=== PATIENT | male | born 1950 | race Asian ===

== ENCOUNTER 2018-01-01 09:58 | Inpatient (IN) | payer OTHER ==
[~2018-01-01] VITALS: Ht 175.3 cm; Wt 85.3 kg
[2018-01-01] MEDS ORDERED: ASPIRIN 81 MG TAB.CHEW PO ONE (10:15)
[2018-01-01] MEDS ORDERED: IPRATRPIUM/ALBUTEROL 0.5/2.5MG 3 ML NEBU. NEB ONE (10:15)
[2018-01-01] MEDS ORDERED: methylPREDNISolone SOD SUCC PF 125 MG/2 ML VIAL. IV ONE (10:15)
--- NOTE | 2018-01-01 10:24 | PHYS DOC ---
Adult General Chief Complaint Chief Complaint: COUGH HPI HPI This is a pleasant 67-year-old male presenting to the emergency department with 3 days of cough chest pain shortness of breath. He denies any fevers at home. He has a history of reported asthma though he was a former smoker. No alleviating or exacerbating factors. He has noted a change in his sputum production with yellow sputum. He denies abdominal pain or vomiting. He does have pain in his chest that is a throbbing pain worse with coughing. Nonradiating and without alleviating factors. He was recently seen by our redrawer Dr. Glass for worsening dyspnea and lower extremity edema. He is currently awaiting the results of an echocardiogram and x-ray from clinic. He has been using his nebulizer at home without any relief. He's been taking 50 mg of prednisone without any relief as well. His shortness of breath is worse when he lays flat. Past medical history: History of asthma/COPD, insomnia, hypertension, bilateral leg edema, history of urinary retention and bilateral knee pain. Surgical history: None Social history: Former smoker, denies drinking or IV drug use. He is with 3 children. Lives with spouse. Review of systems is negative for abdominal pain fevers chills diarrhea constipation vomiting. All other review of systems is negative unless otherwise noted in history of present illness. ED course: 67-year-old male presenting to the emergency department today with chest pain cough sputum production and worsening dyspnea. On arrival he is saturating well on room air. Chest x-ray along with EKG and blood work ordered. IV steroids and nebulizer along with an aspirin administered upon arrival. EKG reviewed by myself shows sinus rhythm with a regular rate. ST segments congruent. Not suggestive of ACS. X-ray unremarkable. Blood work shows mildly low potassium. Flu negative. Urinalysis not suggestive of infection. Given the patient's chest pain with a heart score of 4 we will admit the patient for ACS rule out and COPD exacerbation in light of the patient's worsening symptoms in the context of outpatient medical tx failure. HEART SCORE History Slightly suspicious 0 Moderately suspicious +1 Highly suspicious +2 EKG 1 point: No ST depression but LBBB, LVH, repolarization changes (ex: digoxin); 2 points: ST depression/elevation not due to LBBB, LVH, or digoxin Normal 0 Non-specific repolarization disturbance +[address] depression +2 Age <45 0 45-65 +1 65 +2 Risk factors Risk factors: HTN, hypercholesterolemia, DM, obesity (BMI >30 kg/m), smoking (current, or smoking cessation 3 mo), positive family history (parent or sibling with CVD before age 65); atherosclerotic disease: prior UT, PCI/CABG, CVA/TIA, or peripheral arterial disease No known risk factors 0 1-2 risk factors +1 3 risk factors or history of atherosclerotic disease +2 Initial troponin Use local assays and corresponding cutoffs normal limit 0 1-2 normal limit +1 >2 normal limit +2 Total 4 points Impression: COPD exacerbation, pneumonia, chest pain needing rule out for ACS. Review of Systems Review of Systems SEE ABOVE. Physical Exam Physical Exam SEE ABOVE Constitutional: Well developed, well nourished, no acute distress, non-toxic appearance. [] HENT: Normocephalic, atraumatic, bilateral external ears normal, oropharynx moist, no oral exudates, nose normal. [] Eyes: PERRLA, EOMI, conjunctiva normal, no discharge. [] Neck: Normal range of motion, no tenderness, supple, no stridor. [] Cardiovascular:Heart rate regular rhythm, no murmur [] Lungs & Thorax: Patient has clear wheezing in all lung tony with prolonged respiratory phase. Abdomen: Bowel sounds normal, soft, no tenderness, no masses, no pulsatile masses. [] Skin: Warm, dry, no erythema, no rash. [] Back: No tenderness, no CVA tenderness. [] Extremities: No tenderness, no cyanosis, no clubbing, ROM intact, no edema. [] Neurologic: Alert and oriented X 3, normal motor function, normal sensory function, no focal deficits noted. [] Psychologic: Affect normal, judgement normal, mood normal. [] EKG EKG [] Radiology/Procedures Radiology/Procedures [] Course & Med Decision Making Course & Med Decision Making Pertinent Labs and Imaging studies reviewed. (See chart for details) [] Dragon Disclaimer Dragon Disclaimer This electronic medical record was generated, in whole or in part, using a voice recognition dictation system. Departure Departure: Disposition: ADMITTED INPATIENT Admitting Physician: Alverto Mathew Condition: STABLE BASHIR REYES MD Jan 01, 2018 10:24
[2018-01-01] MEDS ORDERED: AZITHROMYCIN 500 MG in IV NORMAL SALINE 250ML 250 ML IV ONE (10:30)
[2018-01-01 10:39] LABS: BASO # 0.1 x10^3/uL (0.0-0.2); BASO % 1 % (0-3); EOS # 0.3 x10^3/uL (0.0-0.7); EOS % 4 % (0-3); HEMOGLOBIN 15.6 g/dL (13.0-17.5); LYMPH # 1.2 x10^3/uL (1.0-4.8); LYMPH % 17 % (24-48); MEAN CORPUSCULAR HEMOGLOBIN 27 pg (25-35); MEAN CORPUSCULAR HGB CONC 35 g/dL (31-37); MEAN CORPUSCULAR VOLUME 79 fL (79-100); MONO # 0.7 x10^3/uL (0.0-1.1); MONO % 11 % (0-9); NEUT # 4.7 x10^3uL (1.8-7.7); NEUT % 67 % (31-73); PLATELET COUNT 279 x10^3/uL (140-400); RED BLOOD COUNT 5.71 x10^6/uL (4.30-5.70); RED CELL DISTRIBUTION WIDTH 14.7 % (11.5-14.5)
[2018-01-01] MEDS ORDERED: IV NORMAL SALINE 50ML 50 ML ONE (10:39)
[2018-01-01] MEDS ORDERED: IV NORMAL SALINE 250ML 250 ML ONE (10:39)
[2018-01-01] MEDS ORDERED: AZITHROMYCIN 500 MG VIAL. IV ONE (10:39)
[2018-01-01] MEDS ORDERED: cefTRIAXone SODIUM 1 GM VIAL IV ONE (10:40)
--- NOTE | 2018-01-01 10:50 | RAD ---
EXAM: CHEST 1 VIEW History: Cough COMPARISON: None available. TECHNIQUE: Single portable radiograph of the chest FINDINGS: The cardiac silhouette is unremarkable. The lungs are clear bilaterally. The costophrenic sulci are clear and well demarcated. IMPRESSION: No radiographic evidence of an acute cardiopulmonary process. Electronically signed by: Vj Hahn MD (01/01/2018 10:47 AM) [id number]
[2018-01-01 10:57] LABS: ALBUMIN 3.7 g/dL (3.4-5.0); CALCIUM 10.3 mg/dL (8.5-10.1); CREATININE 1.4 mg/dL (0.7-1.3); DIRECT BILIRUBIN 0.2 mg/dL (0.0-0.2); GFR 50.5; POTASSIUM 3.3 mmol/L (3.5-5.1); TOTAL BILIRUBIN 1.1 mg/dL (0.2-1.0); TOTAL PROTEIN 7.8 g/dL (6.4-8.2)
[2018-01-01 11:01] LABS: INFLUENZA A PATIENT NEGATIVE (NEGATIVE); INFLUENZA B PATIENT NEGATIVE (NEGATIVE)
[2018-01-01 11:21] LABS: BACTERIA,URINE 0 /HPF (0-FEW); BILIRUBIN,URINE NEG (NEG); CLARITY,URINE CLEAR; COLOR,URINE YELLOW; GLUCOSE,URINE NEG (NEG); NITRITE,URINE NEG (NEG); RBC,URINE RARE /HPF (0-2); SQUAMOUS EPITHELIAL CELL,UR OCC /LPF; UROBILINOGEN,URINE 0.2 mg/dL (0.2 mg/dL); WBC,URINE OCC /HPF (0-4)
[2018-01-01 12:29] VITALS: BP 118/79
--- NOTE | 2018-01-01 13:53 | EKG ---
[address] [address] Test Date: 2018-01-01 Test Time: 11:08:20 Pat Name: ANGEL BARRETT Department: Room: 117 A Gender: M [employer]: : [id number] Requested By: BASHIR REYES Order Number: [id number] Reading MD: Dillon Au MD Measurements Intervals [place] Rate: 68 P: 16 [place]: 178 QRS: 3 QRSD: 106 T: 19 QT: 424 QTc: 451 Interpretive Statements SINUS RHYTHM Electronically Signed On 01-03-2018 13:41:32 CDT by Dillon Au MD
[2018-01-01 15:26] VITALS: BP 109/71
[2018-01-01] MEDS ORDERED: ALBUTEROL SULFATE 2.5 MG/3 ML NEBU. NEB PRN (17:00)
[2018-01-01] MEDS ORDERED: PRED50TA PO (17:13)
[2018-01-01] MEDS ORDERED: TIZA4TAB PO (17:13)
[2018-01-01] MEDS ORDERED: LOSA1TAB25 PO (17:14)
[2018-01-01] MEDS ORDERED: AMLO10TA6 PO (17:14)
[2018-01-01] MEDS ORDERED: TRAZ-85 PO (17:14)
[2018-01-01] MEDS ORDERED: HYDR12.58 PO (17:14)
[2018-01-01] MEDS ORDERED: ALBU8.5H8 INH (17:14)
[2018-01-01] MEDS ORDERED: TAMS0.4C2 PO (17:14)
[2018-01-01] MEDS ORDERED: IPRA3AMP29 NEB (17:14)
[2018-01-01] MEDS ORDERED: tiZANidine 4 MG TABLET. PO PRN (17:30)
--- NOTE | 2018-01-01 18:02 | RAD ---
CT head without intravenous contrast History: Severe headache. Cough and sinus drainage. Comparison: CT head November 29, 2017. Technique: Axial images are obtained of the head from the skull base through the vertex without IV contrast. Exposure: One or more of the following individualized dose reduction techniques were utilized for this examination: 1. Automated exposure control 2. Adjustment of the mA and/or kV according to patient size 3. Use of iterative reconstruction technique Findings: The ventricles are appropriate in size, shape, and location for the patient's age. No obvious intracranial mass, mass-effect, midline shift, hemorrhage or obvious acute infarction is identified. Basilar cisterns are patent. Bone windows demonstrate no acute calvarial abnormality. Impression: 1. No acute intracranial process. CT face without contrast Technique: CT of the face was performed without intravenous contrast. Axial, sagittal, and coronal reconstructions were obtained. Exposure: One or more of the following individualized dose reduction techniques were utilized for this examination: 1. Automated exposure control 2. Adjustment of the mA and/or kV according to patient size 3. Use of iterative reconstruction technique Findings: No acute fracture is identified. Bilateral orbits and orbital contents appear intact. Mild bilateral maxillary sinus mucosal thickening is seen. Both ostiomeatal units are patent. Left frontal sinus is undeveloped. There is heterogeneously dense material with multiple foci of gas measuring about 2 cm in maximum dimension anterior and adjacent to the left parasymphyseal the mandible. This may be packing material. Correlate with history. Impression: 1. Mild bilateral maxillary sinus mucosal thickening. 2. Heterogeneously dense material is seen adjacent to the left parasymphyseal mandible. Recommend correlation with the history and physical examination. Electronically signed by: John Estrella MD (01/01/2018 5:58 PM) [facility]
[2018-01-01] MEDS: ACETAMINOPHEN 325 MG TABLET PO PRN (18:04)
[2018-01-01 19:42] VITALS: BP 101/66
[2018-01-01] MEDS: traZODone 50 MG TABLET. PO SCH (20:19)
[2018-01-01] MEDS: MONTELUKAST 10 MG TABLET. PO SCH (20:19)
[2018-01-01] MEDS: IPRATRPIUM/ALBUTEROL 0.5/2.5MG 3 ML NEBU. NEB SCH (20:46)
[2018-01-01] MEDS: methylPREDNISolone SOD SUCC PF 40 MG/ML VIAL. IV SCH (20:58)
[2018-01-01 22:49] VITALS: BP 98/61
--- NOTE | 2018-01-02 02:37 | HP ---
ADMIT DATE: 01/01/2018 HISTORY OF PRESENT ILLNESS: The patient is a 67-year-old [place] male patient, who apparently came to the Emergency Room complaining of 3 days of cough and chest pain and shortness of breath. He denied any fever at home. He has a history of reported bronchial asthma; however, he was frail former smoker. He was not really very specific about his chest pain and stated that it is constantly going up to the right neck and into his head. Denied any nausea or vomiting. Denied any diaphoresis. His shortness of breath is worse on exertion. According to his daughter, he apparently has had myocardial infarction about 3 years ago when he was admitted to the [facility], although no mention of any stenting. He was evaluated in the Emergency Room and was treated with IV steroids, IV antibiotics, and has had his first set of cardiac enzymes that was negative and was admitted to consult the cardiology team and to rule out myocardial infarction. PAST MEDICAL HISTORY: Significant for hypertension, bronchial asthma, coronary artery disease status post MS, and generalized osteoarthritis. PAST SURGICAL HISTORY: Unremarkable. ALLERGIES: HE IS ALLERGIC TO IODINE, CONTRAST DYE, IODINE POVACRYLEX WELL ISOPROPYL ALCOHOL. MEDICATIONS: He is currently on following medications: He is on prednisone 50 mg p.o. twice a day, tizanidine 4 mg every 8 hours, losartan/hydrochlorothiazide 100/12.5 mg daily, hydrochlorothiazide 25 mg 1 tablet once a day, amlodipine 10 mg 1 tablet once a day, ipratropium bromide/albuterol by nebulizer 4 times a day. He is on ProAir 1 inhalation every 4 hours as needed. He is on Flomax 0.4 mg once a day and trazodone 50 mg at bedtime. He is also known to have history of bladder outlet obstruction that required an indwelling Law catheter, was kept for 2 weeks and was removed. FAMILY HISTORY: Unremarkable. One of his older brothers has diabetes and does not know anything about his other brother and 3 sisters. Both parents are , but does not know the age or the cause of their . SOCIAL HISTORY: He is , has 1 son and 2 daughters. He is an ex-smoker, quit 8 years ago; however, continues to chew tobacco. He does not drink alcohol or use any recreational drugs. He is currently on disability. REVIEW OF SYSTEMS: The patient denied any blurring of vision, cataract, glaucoma or macular degeneration. Denied any earache, tinnitus or sensorineural deafness. Denied any nosebleeds, stuffy nose or postnasal drip. Denied any sore throat, sore tongue, toothache, hoarseness of voice or difficulty swallowing. Denied any nausea, vomiting, diarrhea or constipation. Denied any hematemesis, melena or hematochezia. Denied any dysuria, frequency or hematuria. Did complain of chest pain, shortness of breath, mostly on exertion. PHYSICAL EXAMINATION: GENERAL: On arrival to the Emergency Room, he looked well. There was no pallor, jaundice or cyanosis. No lymphadenopathy, no thyromegaly. No jugular venous distension. No lower limb edema. VITAL SIGNS: His heart rate was 105, blood pressure was 109/77, temperature was 98.2, respiratory rate was 26 and oxygen saturation was 97%. HEENT: Showed normocephalic, atraumatic. NECK: Supple. HEART: Showed normal first and second heart sounds with no gallop, rub or murmur. CHEST: Clear to auscultation. No crepitation or rhonchi. ABDOMEN: Distended, soft, nontender. No guarding or rigidity. No organomegaly. Hernial orifice intact. Bowel sounds normal. NEUROLOGIC: He is awake, alert, responding appropriately. All his cranial nerves are intact. EXTREMITIES: He moves extremities without difficulty, ambulates with a cane. LABORATORY DATA: His lab work on arrival showed a white cell count of 7000, hemoglobin 15.6, hematocrit 45, MCV 79 and platelet count of 279,000. His chemistry showed a serum sodium of 141, potassium 3.3, chloride 103, bicarbonate 30, anion gap of 8, BUN 12, creatinine 1.4, estimated GFR was 50 mL per minute. His glucose was 103, calcium was 7.3. Total bilirubin, AST, ALT, and alkaline phosphatase were normal. His lactic acid is only 1.8. His first set of cardiac enzyme showed troponin to be less than 0.017. His beta-natriuretic peptide was 41. Total protein was 7.8, albumin was 3.7. Lipase was 161. His urinalysis was essentially unremarkable and was negative for protein, glucose, ketones, nitrite and leukocyte esterase. His influenza A and B were both negative. His chest x-ray showed the cardiac silhouette is unremarkable. The lungs are clear bilaterally. The costophrenic sulci are clear and well demarcated. ASSESSMENT AND PLAN: The patient was admitted with chest pain and worsening shortness of breath. He is a smoker. He probably has chronic obstructive pulmonary disease exacerbation and probably acute bronchitis. I would continue with IV ceftriaxone and Zithromax. Continue with nebulized treatment as well as Solu-Medrol. We will do 2 more sets of cardiac enzyme. I will arrange for him to have a CT scan of the paranasal sinuses and to consult the cardiology team. NOLAN ARAUZ MD DR: SAMIA/gideon JOB#: [id number] / [id number]
[2018-01-02] MEDS: IPRATRPIUM/ALBUTEROL 0.5/2.5MG 3 ML NEBU. NEB SCH ×2 (05:25→10:25)
[2018-01-02] MEDS: methylPREDNISolone SOD SUCC PF 40 MG/ML VIAL. IV SCH ×2 (05:31→17:37)
[2018-01-02 05:37] VITALS: BP 107/74
[2018-01-02 06:16] LABS: BASO % 0 % (0-3); EOS % 0 % (0-3); HEMATOCRIT 44.8 % (39.0-53.0); HEMOGLOBIN 15.8 g/dL (13.0-17.5); LYMPH # 1.2 x10^3/uL (1.0-4.8); LYMPH % 9 % (24-48); MEAN CORPUSCULAR HEMOGLOBIN 28 pg (25-35); MEAN CORPUSCULAR HGB CONC 35 g/dL (31-37); MEAN CORPUSCULAR VOLUME 79 fL (79-100); MONO # 0.3 x10^3/uL (0.0-1.1); MONO % 2 % (0-9); NEUT # 12.2 x10^3uL (1.8-7.7); NEUT % 89 % (31-73); PLATELET COUNT 291 x10^3/uL (140-400); WHITE BLOOD COUNT 13.7 x10^3/uL (4.0-11.0)
[2018-01-02 06:17] LABS: CALCIUM 9.7 mg/dL (8.5-10.1); CREATININE 1.5 mg/dL (0.7-1.3); GFR 46.7; POTASSIUM 3.5 mmol/L (3.5-5.1)
[2018-01-02] MEDS: AZITHROMYCIN 250 MG TABLET. PO SCH (08:15)
[2018-01-02] MEDS: amLODIPine BESYLATE 10 MG TABLET PO SCH (08:15)
[2018-01-02] MEDS: TAMSULOSIN 0.4 MG CAP.ER.24H. PO SCH (08:16)
[2018-01-02] MEDS: ACETAMINOPHEN 325 MG TABLET PO PRN ×3 (08:21→20:52)
--- NOTE | 2018-01-02 09:32 | PDOC2 ---
CONSULT Date of Admission DATE: 01/02/18 TIME: 09:30 Reason for Consult: CP, Dyspnea Problem List Problems Medical Problems: (1) COPD (chronic obstructive pulmonary disease) Status: Acute History of Present Illness Mr Verma is a 67-year-old male who speaks minimal Yakut. [employer] phone services utilized. He presented to his PCP office yesterday complaining of shortness of breath, cough and chest pain. He has a history of prior GA and coronary artery disease and was seen earlier in the month by our office. He reports progressive symptoms of dyspnea over the last few years. The last 3 weeks he reports increased cough and dyspnea above baseline. He reports productive cough with white sputum. He reports feeling of being hot but unsure of fever. He reports increased discomfort with cough which radiates to his right shoulder and neck. He also describes chest discomfort, Mid to left chest off and on, described as tightness/heaviness that worsens with exertion and improves with rest. He denies congestive symptoms such as PND or orthopnea though he reported to his PCP that he was not able to lie flat due to symptoms. He has been using nebulizers and prednisone at home without improvement. He denies palpitations or syncope. He does report lower extremity edema. CXR failed to reveal any pulmonary vascular congestion and cardiac enzymes have remained normal. He does have mild leukocytosis. He has been afebrile since admission. Past Medical History Cardiovascular: CAD, HTN, GA, Other (SVT) Pulmonary: Asthma Psych: Other (insomnia) Musculoskeletal: Osteoarthritis, Other (chronic back pain) Renal/: Benign prostatic enlarg. (bladder outlet obstruction previously requiring indwelling catheter for a period of time) Past Surgical History unremarkable Family History One of his older brothers has diabetes and does not know anything about his other brother and 3 sisters. Both parents are , but does not know the age or the cause of their . no known premature coronary disease Social History He is , has 1 son and 2 daughters. He is an ex-smoker, quit 8 years ago ; however, continues to chew tobacco. He does not drink alcohol or use any recreational drugs. He is currently on disability. Current Medications Home medications: prednisone 50 mg p.o. twice a day tizanidine 4 mg every 8 hours losartan/hydrochlorothiazide 100/12.5 mg daily hydrochlorothiazide 25 mg 1 tablet once a day amlodipine 10 mg 1 tablet once a day ipratropium bromide/albuterol by nebulizer 4 times a day ProAir 1 inhalation every 4 hours as needed Flomax 0.4 mg once a day trazodone 50 mg at bedtime. Current Medications Methylprednisolone Sodium Succinate (SOLU-Medrol 125MG VIAL) 125 mg 1X ONCE IV Last administered on 01/01/18at 10:47; Start 01/01/18 at 10:15; Stop at 10:24; Status DC Albuterol/ Ipratropium (Duoneb) 3 ml 1X ONCE NEB Last administered on at 10:47; Start 01/01/18 at 10:15; Stop 01/01/18 at 10:24; Status DC Aspirin (Children'S Aspirin) 324 mg 1X ONCE PO Last administered on at 10:44; Start 01/01/18 at 10:15; Stop 01/01/18 at 10:24; Status DC Ceftriaxone Sodium 1 gm/ Sodium Chloride 50 ml @ 100 mls/hr 1X ONCE IV Last administered on 01/01/18at 10:48; Start 01/01/18 at 10:30; Stop 01/01/18 at 10 :59; Status DC Azithromycin 500 mg/Sodium Chloride 250 ml @ 250 mls/hr 1X ONCE IV Last administered on 01/01/18at 10:49; Start 01/01/18 at 10:30; Stop 01/01/18 at 11 :29; Status DC Sodium Chloride 250 ml @ As Directed STK-MED ONCE .ROUTE ; Start 01/01/18 at 10:39; Stop 01/01/18 at 10:40; Status DC Sodium Chloride 50 ml @ As Directed STK-MED ONCE .ROUTE ; Start 01/01/18 at 10: 39; Stop 01/01/18 at 10:40; Status DC Azithromycin (Zithromax) 500 mg STK-MED ONCE IV ; Start 01/01/18 at 10:39; Stop 01/01/18 at 10:40; Status DC Ceftriaxone Sodium (Rocephin) 1 gm STK-MED ONCE IV ; Start 01/01/18 at 10:40; Stop 01/01/18 at 10:41; Status DC Methylprednisolone Sodium Succinate (SOLU-Medrol 40MG VIAL) 40 mg Q8HRS IV Last administered on 01/02/18at 05:31; Start 01/01/18 at 22:00 Ceftriaxone Sodium 1 gm/ Sodium Chloride 50 ml @ 100 mls/hr Q24H IV ; Start at 17:00; Stop 01/01/18 at 17:16; Status DC Azithromycin (Zithromax) 500 mg DAILY PO Last administered on 01/02/18at 08:15 ; Start 01/02/18 at 09:00 Albuterol/ Ipratropium (Duoneb) 3 ml RTQID NEB Last administered on 01/02/18at 05:25; Start 01/01/18 at 20:00 Guaifenesin (Mucinex Er) 600 mg BID PO Last administered on 01/02/18at 08:16; Start 01/01/18 at 21:00 Montelukast Sodium (Singulair) 10 mg QHS PO Last administered on 01/01/18at 20: 19; Start 01/01/18 at 21:00 Albuterol Sulfate (Ventolin) 2.5 mg PRN Q2HR PRN NEB SHORTNESS OF BREATH; Start 01/01/18 at 17:00 Tamsulosin HCl (Flomax) 0.4 mg DAILY PO Last administered on 01/02/18at 08:16; Start 01/02/18 at 09:00 Amlodipine Besylate (Norvasc) 10 mg DAILY PO Last administered on 01/02/18at 08 :15; Start 01/02/18 at 09:00 Tizanidine HCl (Zanaflex) 4 mg PRN Q8HRS PRN PO MUSCLE SPASMS; Start 01/01/18 at 17:30 Trazodone HCl (Desyrel) 50 mg QHS PO Last administered on 01/01/18at 20:19; Start 01/01/18 at 21:00 Ceftriaxone Sodium 1 gm/ Sodium Chloride 50 ml @ 100 mls/hr Q24H IV ; Start at 11:00 Influenza Virus Vaccine (Afluria Trivalent [id number] Syringe) 0.5 ml ONCE ONCE VAX IM Last administered on 01/02/18at 08:19; Start 01/02/18 at 09:00; Stop 01/02/18 at 09:01; Status DC Acetaminophen (Tylenol) 650 mg PRN Q6HRS PRN PO PAIN / TEMP Last administered on 01/02/18at 08:21; Start 01/01/18 at 18:00 Lactobacillus Rhamnosus (Culturelle) 1 cap BID PO ; Start 01/02/18 at 10:00 Active Scripts Active Reported Trazodone Hcl 50 Mg Tablet 1 Tab PO QHS Tamsulosin Hcl 0.4 Mg Cap.er.24h 1 Cap PO DAILY Proair Hfa Inhaler (Albuterol Sulfate) 8.5 Gm Hfa.aer.ad 2 Puff INH PRN Q4HRS PRN Duoneb 0.5-3(2.5) Mg/3 Ml (Albuterol/Ipratropium) 3 Ml Ampul.neb 3 Ml NEB QID Amlodipine Besylate 10 Mg Tablet 1 Tab PO DAILY Hydrochlorothiazide Tablet (Hydrochlorothiazide) 12.5 Mg Tablet 2 Tab PO DAILY Losartan-Hctz 100-12.5 Mg Tab (Losartan/Hydrochlorothiazide) 1 Each Tablet 1 Tab PO DAILY Tizanidine Hcl (Tizanidine HCl) 4 Mg Tablet 4 Mg PO PRN Q8HRS PRN Prednisone 50 Mg Tablet 50 Mg PO BID Allergies: Coded Allergies: Iodinated Contrast- Oral and IV Dye (Verified Allergy, Unknown, 01/01/18) iodine povacrylex (Verified Allergy, Unknown, 01/01/18) isopropyl alcohol (Verified Allergy, Unknown, 01/01/18) Review of System as per HPI and denies further complaints currently General: Alert, Oriented X3, Cooperative, No acute distress HEENT: Atraumatic, EOMI Lungs: Other (decreased with occasional expiratory wheezing) Heart: Regular rate, Normal S1, Normal S2, Other (no gallops, clicks or rubs) Extremities: No cyanosis, Normal pulses, Other (trace bilateral lower extremity edema) Neuro: Normal speech, Strength at 5/5 X4 ext Psych/Mental Status: Mental status NL, Mood NL VITALS Vital Signs Date Time Temp Pulse Resp B/P (MAP) Pulse Ox O2 Delivery O2 Flow Rate FiO2 01/02/18 08:15 102 107/74 01/02/18 08:00 Room Air 01/02/18 05:37 97.6 20 94 Labs Laboratory Tests Test 01/01/18 10:21 01/01/18 10:23 01/01/18 10:30 01/01/18 14:04 Influenza Type A (Rapid) Negative (NEGATIVE) Influenza Type B (Rapid) Negative (NEGATIVE) White Blood Count 7.0 x10^3/uL (4.0-11.0) Red Blood Count 5.71 x10^6/uL (4.30-5.70) Hemoglobin 15.6 g/dL (13.0-17.5) Hematocrit 45.0 % (39.0-53.0) Mean Corpuscular Volume 79 fL (79-100) Mean Corpuscular Hemoglobin 27 pg (25-35) Mean Corpuscular Hemoglobin Concent 35 g/dL (31-37) Red Cell Distribution Width 14.7 % (11.5-14.5) Platelet Count 279 x10^3/uL (140-400) Neutrophils (%) (Auto) 67 % (31-73) Lymphocytes (%) (Auto) 17 % (24-48) Monocytes (%) (Auto) 11 % (0-9) Eosinophils (%) (Auto) 4 % (0-3) Basophils (%) (Auto) 1 % (0-3) Neutrophils # (Auto) 4.7 x10^3uL (1.8-7.7) Lymphocytes # (Auto) 1.2 x10^3/uL (1.0-4.8) Monocytes # (Auto) 0.7 x10^3/uL (0.0-1.1) Eosinophils # (Auto) 0.3 x10^3/uL (0.0-0.7) Basophils # (Auto) 0.1 x10^3/uL (0.0-0.2) Sodium Level 141 mmol/L (136-145) Potassium Level 3.3 mmol/L (3.5-5.1) Chloride Level 103 mmol/L (98-107) Carbon Dioxide Level 30 mmol/L (21-32) Anion Gap 8 (6-14) Blood Urea Nitrogen 12 mg/dL (8-26) Creatinine 1.4 mg/dL (0.7-1.3) Estimated GFR (Cockcroft-Gault) 50.5 Glucose Level 103 mg/dL (70-99) Lactic Acid Level 1.8 mmol/L (0.4-2.0) Calcium Level 10.3 mg/dL (8.5-10.1) Total Bilirubin 1.1 mg/dL (0.2-1.0) Direct Bilirubin 0.2 mg/dL (0.0-0.2) Aspartate Amino Transf (AST/SGOT) 19 U/L (15-37) Alanine Aminotransferase (ALT/SGPT) 34 U/L (16-63) Alkaline Phosphatase 104 U/L (46-116) Troponin I Quantitative < 0.017 ng/mL (0-0.055) < 0.017 ng/mL (0-0.055) GG-Rcp-U-Type Natriuretic Peptide 41 pg/mL (0-124) Total Protein 7.8 g/dL (6.4-8.2) Albumin 3.7 g/dL (3.4-5.0) Lipase 161 U/L (73-393) Urine Collection Type Void Urine Color Yellow Urine Clarity Clear Urine pH 6.5 Urine Specific Neeses 1.015 Urine Protein Neg (NEG-TRACE) Urine Glucose (UA) Neg mg/dL (NEG) Urine Ketones (Stick) Neg mg/dL (NEG) Urine Blood Neg (NEG) Urine Nitrite Neg (NEG) Urine Bilirubin Neg (NEG) Urine Urobilinogen Dipstick 0.2 mg/dL (0.2 mg/dL) Urine Leukocyte Esterase Neg (NEG) Urine RBC Rare /HPF (0-2) Urine WBC Occ /HPF (0-4) Urine Squamous Epithelial Cells Occ /LPF Urine Bacteria 0 /HPF (0-FEW) Test 01/01/18 18:15 01/02/18 05:38 Troponin I Quantitative < 0.017 ng/mL (0-0.055) White Blood Count 13.7 x10^3/uL (4.0-11.0) Red Blood Count 5.70 x10^6/uL (4.30-5.70) Hemoglobin 15.8 g/dL (13.0-17.5) Hematocrit 44.8 % (39.0-53.0) Mean Corpuscular Volume 79 fL (79-100) Mean Corpuscular Hemoglobin 28 pg (25-35) Mean Corpuscular Hemoglobin Concent 35 g/dL (31-37) Red Cell Distribution Width 15.0 % (11.5-14.5) Platelet Count 291 x10^3/uL (140-400) Neutrophils (%) (Auto) 89 % (31-73) Lymphocytes (%) (Auto) 9 % (24-48) Monocytes (%) (Auto) 2 % (0-9) Eosinophils (%) (Auto) 0 % (0-3) Basophils (%) (Auto) 0 % (0-3) Neutrophils # (Auto) 12.2 x10^3uL (1.8-7.7) Lymphocytes # (Auto) 1.2 x10^3/uL (1.0-4.8) Monocytes # (Auto) 0.3 x10^3/uL (0.0-1.1) Eosinophils # (Auto) 0.0 x10^3/uL (0.0-0.7) Basophils # (Auto) 0.0 x10^3/uL (0.0-0.2) Sodium Level 140 mmol/L (136-145) Potassium Level 3.5 mmol/L (3.5-5.1) Chloride Level 103 mmol/L (98-107) Carbon Dioxide Level 26 mmol/L (21-32) Anion Gap 11 (6-14) Blood Urea Nitrogen 18 mg/dL (8-26) Creatinine 1.5 mg/dL (0.7-1.3) Estimated GFR (Cockcroft-Gault) 46.7 Glucose Level 152 mg/dL (70-99) Calcium Level 9.7 mg/dL (8.5-10.1) Images CXR - no acute abn EKG - sinus rhythm, LAD, no acute st/t abn Assessment/Plan 1. Chest pain - GA ruled out. acute chest pain consistent with musculoskeletal pain likely secondary to continued cough. Midsternal to left sided pressure that is exertional is more worrisome. No acute EKG changes and Harshil have remained negative. Suggest echocardiogram for LV function and structure. In light of exertional symptoms and prior history of GA would suggest outpatient stress testing for CAD progression when acute respiratory symptoms have improved as long as no significant abnormalities on echo. 2. acute respiratory insufficiency - most consistent with acute bronchitis. No acute abn on CXR, No overt heart failure. Mgmt per PCP. 3. hypertension -resume home medications. 4. Hx SVT - no new arrhythmias. 5. Renal insufficiency with history of BPH and bladder outlet obstruction previously - mgmt per PCP SHANNAN CLEMONS MISDRAW HAND Jan 02, 2018 09:32
[2018-01-02 10:04] VITALS: BP 106/69
[2018-01-02] MEDS: LACTOBACILLUS RHAMNOSUS GG 1 CAPSULE. PO SCH ×2 (10:20→20:52)
[2018-01-02] MEDS ORDERED: guaiFENesin DM 200MG/20MG 10 ML SYRUP PO PRN (11:30)
[2018-01-02] MEDS ORDERED: IPRATRPIUM/ALBUTEROL 0.5/2.5MG 3 ML NEBU. NEB PRN (11:45)
--- NOTE | 2018-01-02 13:23 | CARD ---
MR#: [id number] Date of Study: 01/02/2018 Ordering Physician: SHANNAN CLEMONS, Referring Physician: NOLAN ARAUZ Tech: Apolonia Johnson RDCS APPROVED REPORT EXAM: Two-dimensional and M-mode echocardiogram with Doppler and color Doppler. Other Information Quality : Good INDICATION Chest Pain Murmur 2D DIMENSIONS RVDd2.4 (2.9-3.5cm)Left Atrium(2D)3.3 (1.6-4.0cm) IVSd1.2 (0.7-1.1cm)Aortic Root(2D)2.8 (2.0-3.7cm) LVDd4.9 (3.9-5.9cm)LVOT Diameter2.4 (1.8-2.4cm) PWd1.2 (0.7-1.1cm)LVDs3.4 (2.5-4.0cm) FS (%) 31.1 %SV66.4 ml LVEF(%)58.7 (>50%) Aortic Valve AoV Peak Yaw.156.7cm/sAoV VTI26.0cm AO Peak GR.9.8mmHgLVOT Peak Yaw.149.0cm/s LVOT VTI 24.36cmAO Mean GR.5mmHg MACK (VMAX)4.95to1GRG (VTI)4.37cm2 AI P 1/2 Tuyj400yv Mitral Valve MV E Bzqslgxf243.8cm/sMV DECEL [id number] MV A Ajmvzjwn979.9cm/sE/A Ratio0.7 Tricuspid Valve TR P. Xfyosuez188on/sRAP [id number] TR Peak Gr.51jwZuIWTH10ooMb LEFT VENTRICLE The left ventricle is normal size. There is mild concentric left ventricular hypertrophy. The left ve ntricular systolic function is normal . The Ejection Fraction is 55-60%. There is normal LV segmental wall motion. Transmitral Doppler flow pattern is Grade I-abnormal relaxation pattern. RIGHT VENTRICLE The right ventricle is normal size. The right ventricular systolic function is normal. ATRIA The left atrium size is normal. The right atrium size is normal. The interatrial septum is intact wit h no evidence for an atrial septal defect or patent foramen ovale as noted on 2-D or Doppler imaging. AORTIC VALVE The aortic valve is calcified but opens well. Doppler and Color Flow revealed mild aortic regurgitati on. There is no significant aortic valvular stenosis. MITRAL VALVE The mitral valve is calcified but opens well. There is no evidence of mitral valve prolapse. There is no mitral valve stenosis. Doppler and Color-flow revealed trace mitral regurgitation. TRICUSPID VALVE The tricuspid valve is normal in structure and function. Doppler and Color Flow revealed trace tricus pid regurgitation. There is mild pulmonary hypertension. The PA pressure was estimated at 33 mmHg. Th ere is no tricuspid valve stenosis. PULMONIC VALVE The pulmonary valve is normal in structure and function. Doppler and Color Flow revealed no pulmonic valvular regurgitation. There is no pulmonic valvular stenosis. GREAT VESSELS The aortic root is normal in size. The ascending aorta is mildly dilated at 4.2 cm. The IVC is normal in size and collapses >50% with inspiration. PERICARDIAL EFFUSION There is no evidence of significant pericardial effusion. Critical Notification Critical Value: No <Conclusion> The left ventricular systolic function is normal . The Ejection Fraction is 55-60%. There is normal LV segmental wall motion. Transmitral Doppler flow pattern is Grade I-abnormal relaxation pattern. Mild aortic regurgitation. Trace mitral regurgitation. Trace tricuspid regurgitation. The PA pressure was estimated at 33 mmHg. There is no evidence of significant pericardial effusion. Signed by : Tunde Yap, Electronically Approved : 01/02/2018 13:22:39
[2018-01-02 14:17] VITALS: BP 109/65
[2018-01-02 19:00] VITALS: BP 107/73
[2018-01-02] MEDS: traZODone 50 MG TABLET. PO SCH (20:52)
[2018-01-02] MEDS: MONTELUKAST 10 MG TABLET. PO SCH (20:52)
[2018-01-02 22:41] VITALS: BP 120/75
--- NOTE | 2018-01-03 02:12 | PN ---
DATE: 01/02/2018 SUBJECTIVE: The patient is a 67-year-old Polish Filipino male patient who was admitted yesterday with chest pain that radiates to the right side of the neck and also his head. We did actually CT scan of the paranasal sinuses, which showed that he has mild bilateral maxillary sinus mucosal thickening. Heterogeneously dense material is seen adjacent to the left parasymphyseal mandible. Recommend correlation of history and physical examination. His chest x-ray was unremarkable. We did actually 3 sets of cardiac enzymes, all of them ruled out myocardial infarction. This morning, he has been complaining of recurrent bouts of dry hacking cough. He has also some tachycardia. OBJECTIVE: GENERAL: When I examined him, he was sitting up comfortably and does not seem to be in no apparent respiratory distress. No pallor, jaundice, cyanosis, or thyromegaly. No jugular venous distention. No lower limb edema. VITAL SIGNS: His heart rate was 105, blood pressure was 106/69, temperature was 98.1, respiratory rate 20, and oxygen saturation was 99% on room air. HEAD, EYES, EARS, NOSE, AND THROAT: Showed normocephalic, atraumatic. NECK: Supple. HEART: Showed normal first and second heart sounds with no gallop, rub, or murmur. CHEST: Showed central trachea, equally reduced expansion, reduced air entry. I could not really appreciate any crepitation or rhonchi. ABDOMEN: Distended, soft, nontender. No guarding or rigidity. No organomegaly. Hernial orifice intact. Bowel sounds normal. NEUROLOGIC: He is awake, alert, responding appropriately. All cranial nerves intact. He moves extremities without difficulty. He ambulates with a cane according to his daughter. LABORATORY DATA: His lab work this morning showed a white cell count of 13,700, hemoglobin 15.8, hematocrit 44.8, MCV 79, and platelet count 291,000. Serum sodium is 140, potassium 3.5, chloride 103, bicarbonate 26, anion gap of 11, BUN 18, creatinine 1.5, estimated GFR was 46 mL per minute, his glucose was 152, calcium was 9.7. ASSESSMENT: 1. Acute bronchitis. 2. Chronic obstructive pulmonary disease exacerbation. 3. Hypertension. 4. Benign prostatic hypertrophy. PLAN: My plan is to continue with IV antibiotic. Continue with Solu-Medrol, I would cut down to twice a day. He is tachycardic, so I will discontinue the albuterol altogether. He was seen by the Cardiology team and the plan is for him to have an echocardiogram done today and a nuclear stress test done as an outpatient. NOLAN ARAUZ MD DR: SAMIA/gideon JOB#: [id number] / [id number]
[2018-01-03] MEDS: methylPREDNISolone SOD SUCC PF 40 MG/ML VIAL. IV SCH (05:34)
[2018-01-03 05:44] VITALS: BP 108/69
[2018-01-03 06:07] LABS: CALCIUM 8.8 mg/dL (8.5-10.1); CREATININE 1.3 mg/dL (0.7-1.3); GFR 55.1
[2018-01-03 06:25] LABS: BASO % 0 % (0-3); EOS % 0 % (0-3); HEMATOCRIT 39.6 % (39.0-53.0); HEMOGLOBIN 13.6 g/dL (13.0-17.5); LYMPH # 0.8 x10^3/uL (1.0-4.8); LYMPH % 5 % (24-48); MEAN CORPUSCULAR HEMOGLOBIN 27 pg (25-35); MEAN CORPUSCULAR HGB CONC 35 g/dL (31-37); MEAN CORPUSCULAR VOLUME 79 fL (79-100); MONO # 0.6 x10^3/uL (0.0-1.1); MONO % 4 % (0-9); NEUT # 13.8 x10^3uL (1.8-7.7); NEUT % 91 % (31-73); PLATELET COUNT 267 x10^3/uL (140-400); RED BLOOD COUNT 4.98 x10^6/uL (4.30-5.70); WHITE BLOOD COUNT 15.2 x10^3/uL (4.0-11.0)
[2018-01-03 07:54] LABS: % LYMPHS 3 % (24-48); % MONOS 2 % (0-10); % SEGS 94 % (35-66); PLT ESTIMATE ADEQUATE (ADEQUATE); POLYCHROMASIA SLIGHT
[2018-01-03] MEDS: TAMSULOSIN 0.4 MG CAP.ER.24H. PO SCH (08:46)
[2018-01-03] MEDS: LACTOBACILLUS RHAMNOSUS GG 1 CAPSULE. PO SCH (08:46)
[2018-01-03] MEDS: AZITHROMYCIN 250 MG TABLET. PO SCH (08:46)
[2018-01-03] MEDS: amLODIPine BESYLATE 10 MG TABLET PO SCH (08:46)
[2018-01-03 10:44] VITALS: BP 107/70
[2018-01-03] MEDS ORDERED: PRED20TA PO (12:20)
[2018-01-03] MEDS ORDERED: CEFP200T PO (12:20)
[2018-01-03] MEDS ORDERED: AZIT250T PO (12:20)
--- NOTE | 2018-01-03 14:10 | DS ---
DATE OF DISCHARGE: 01/03/2018 HOSPITAL COURSE: The patient is a 67-year-old Nigerien Congolese male patient who was admitted with chest pain and shortness of breath. We did 3 sets of cardiac enzymes that ruled out myocardial infarction. He has had an echocardiogram, which showed that his ejection fraction was 55-60% with normal left ventricular segmental wall motion. The chest x-ray was unremarkable; however, the patient is a smoker and continues to chew tobacco and we treat him with acute bronchitis and COPD exacerbation, treat him with IV antibiotic in the form of Rocephin and Zithromax together with tapering course of steroids and inhalers. He also complained of headache and I did a CT scan of the head and he was found to have mild bilateral maxillary sinus mucosal thickening. Heterogeneously dense material is seen adjacent to the left parasymphyseal mandible. His chest x-ray showed no radiographic evidence of acute cardiopulmonary process. His cough and chest pain and shortness of breath have largely subsided and as he ruled out for myocardial infarction, a decision was made to discharge him home to continue with oral antibiotics and tapering course of steroids and bronchodilators. He was also given a prescription for Lidoderm 5% patch to apply to the neck and also request for an MRI of his cervical spine and we will follow with the cardiology team for outpatient nuclear stress test. PHYSICAL EXAMINATION: GENERAL: When I saw him today, he looked well and was clearly in no apparent respiratory distress. There is no pallor, jaundice, cyanosis, or thyromegaly. No jugular venous distention. No limb edema. VITAL SIGNS: His heart rate was 73, blood pressure was 107/70, temperature was 98.1, respiratory rate was 18 and oxygen saturation was 95%. HEAD, EYES, EARS, NOSE AND THROAT: Showed normocephalic, atraumatic. NECK: Supple. HEART: Showed normal first and second heart sounds with no gallop, rub, or murmur. CHEST: Clear to auscultation. No crepitation or rhonchi. ABDOMEN: Distended, soft, nontender. NEUROLOGIC: He is awake, alert, responding appropriately. All his cranial nerves are intact. He moves extremities without difficulty. He ambulates without assistance or assistive devices. LABORATORY DATA: His lab work as of this morning showed a serum sodium 143, potassium 4, chloride 107, bicarbonate 27, anion gap of 9, BUN 20, creatinine 1.3, estimated GFR was 55 mL per minute, his glucose 130, calcium was 8.8. His fasting lipid profile showed the serum triglycerides to be 111, total cholesterol of 203, LDL cholesterol of 144, VLDL was 22, and HDL was 37, the ratio was 5. White cell count was 15,200, hemoglobin 13.6, hematocrit 39, MCV 79 and platelet count 267,000. Urinalysis was unremarkable. His influenza A and B were negative. DISCHARGE MEDICATIONS: He will be discharged home to continue on azithromycin 250 mg once a day for 7 more days, cefpodoxime 200 mg twice a day for 7 days, tapering course of steroids. He should continue on his albuterol sulfate, amlodipine 10 mg once a day, losartan/hydrochlorothiazide 100/12.5 mg once a day, tamsulosin 0.4 mg once a day, tizanidine 4 mg tablet once a day, and trazodone 50 mg once a day. FINAL DISCHARGE DIAGNOSES: Acute bronchitis and mild bilateral maxillary sinusitis, chronic obstructive pulmonary disease exacerbation, hypertension, chronic obstructive pulmonary disease, benign prostatic hypertrophy. We have arranged for him to have an MRI as an outpatient and to follow with his primary care physician and he will follow with the rotary cutter for nuclear stress test as an outpatient. NOLAN ARAUZ MD DR: SAMIA/gideon JOB#: [id number] / [id number]
== END 2018-01-03 12:54 | disposition home or self-care (01) | DRG 871 ==
LOC: ER 09:58 → OBSVTOIN 12:07 → 1 SOUTH 12:07 → INTOOBSV 12:07 → OBSVTOIN 01-02 08:18
PROVIDERS: ADMIT Internal Medicine; ATTEND Internal Medicine
DX: A41.9 Sepsis, unspecified organism (principal); J18.9 Pneumonia, unspecified organism; J44.0 Chronic obstructive pulmonary disease with (acute) lower respiratory infection; J44.1 Chronic obstructive pulmonary disease with (acute) exacerbation; F17.200 Nicotine dependence, unspecified, uncomplicated; I10 Essential (primary) hypertension; I25.10 Atherosclerotic heart disease of native coronary artery without angina pectoris; J20.9 Acute bronchitis, unspecified; R00.0 Tachycardia, unspecified; M15.9 Polyosteoarthritis, unspecified; J32.0 Chronic maxillary sinusitis; N40.0 Benign prostatic hyperplasia without lower urinary tract symptoms; Z83.3 Family history of diabetes mellitus; Z23 Encounter for immunization; I25.2 Old myocardial infarction; Z79.899 Other long term (current) drug therapy; Z88.8 Allergy status to other drugs, medicaments and biological substances; Z91.041 Radiographic dye allergy status
CPT/HCPCS: 36415; 70450; 70486; 71045; 80048; 80061; 80076; 81001; 83605; 83690; 83880; 84484; 85007; 85025; 87804; 90471; 90756; 93005; 93306; 94640; 96365; 96366; 96368; 96375; G0378; G0379; J0456; J0696; J2920; J2930; J7050; J7620; 99285-25; Q2035